=== PATIENT | male | born 1955 | race Caucasian/White ===

== ENCOUNTER 2023-06-15 16:05 | Outpatient (REF) | payer OTHER, SELFPAY ==
[2023-06-15 20:47] LABS: Abs Immature Grans 0.04 10^3/uL (0.0-0.06); Absolute Basophil Count 0.08 10^3/uL (0.0-0.2); Absolute Eosinophil Count 0.18 10^3/uL (0.0-0.7); Absolute Lymphocyte Count 2.12 10^3/uL (1.2-3.4); Absolute Monocyte Count 0.67 10^3/uL (0.1-0.8); Absolute Neutrophil Count 5.94 10^3/uL (1.2-6.7); Basophils % 0.9; HCT 50.9 % (40.0-50.0); HGB 17.5 g/dL (13.5-17.5); Immature Grans % 0.4; Lymphocytes % 23.5; MCH 32.6 pg (27.0-33.0); MCHC 34.4 % (32.0-36.0); MCV 95 fL (80-95); MPV 10.5 fL (8.0-11.0); Monocytes % 7.4; Neutrophils % 65.8; Platelet Count 269 10^3/uL (130-400); RBC 5.36 10^6/uL (4.36-5.78); RDW 12.5 % (11.8-14.1); RDW-SD 43.9 fL; WBC 9.03 10^3/uL (4.4-10.8)
[2023-06-15 21:20] LABS: ALT 71 U/L (16-63); AST 37 U/L (15-37); Alkaline Phosphatase 68 U/L (46-116); Anion Gap 10.4 mmol/L (3-11); BUN 15 mg/dL (7-18); Bilirubin, Total 1.2 mg/dL (0.2-1.0); CO2 24.6 mmol/L (21.0-32.0); CREATININE 0.9 mg/dL (0.70-1.30); Calcium 9.8 mg/dL (8.5-10.1); Calculated LDL 185 mg/dL (<100); Chloride 103 mmol/L (98-107); Cholesterol 269 mg/dL (<200); Estimated GFR 93.03 (mL/min/1.73m2); Glucose 97 mg/dL (74-106); HDL Cholesterol 44 mg/dL (40-60); Potassium 4.5 mmol/L (3.5-5.1); Sodium 138 mmol/L (136-145); TSH (W/Ref FT4) 1.89 uIU/mL (0.36-3.74); Total Protein 7.6 g/dL (6.4-8.2); Triglyceride 203 mg/dL (<150)
[2023-06-15 21:39] LABS: Vitamin D 25 Total 66.4 ng/mL (30-100)
== END 2023-06-15 16:06 | disposition home or self-care (01) ==
LOC: NCHCN 16:05
PROVIDERS: Visit Provider Student in an Organized Health Care Education/Training Program
DX: E78.5 Hyperlipidemia, unspecified (principal); I10 Essential (primary) hypertension; E55.9 Vitamin D deficiency, unspecified
CPT/HCPCS: 80053; 80061; 82306; 84443; 85025

== ENCOUNTER 2023-07-22 08:53 | Outpatient (REF) | payer OTHER, SELFPAY ==
[2023-07-22 16:02] LABS: Abs Immature Grans 0.02 10^3/uL (0.0-0.06); Absolute Basophil Count 0.07 10^3/uL (0.0-0.2); Absolute Eosinophil Count 0.23 10^3/uL (0.0-0.7); Absolute Lymphocyte Count 3.03 10^3/uL (1.2-3.4); Absolute Monocyte Count 0.69 10^3/uL (0.1-0.8); Absolute Neutrophil Count 4.51 10^3/uL (1.2-6.7); Basophils % 0.8; Eosinophils % 2.7; HCT 50.2 % (40.0-50.0); HGB 17.3 g/dL (13.5-17.5); Immature Grans % 0.2; Lymphocytes % 35.4; MCH 32.7 pg (27.0-33.0); MCHC 34.5 % (32.0-36.0); MCV 95 fL (80-95); MPV 10.4 fL (8.0-11.0); Monocytes % 8.1; Neutrophils % 52.8; Platelet Count 259 10^3/uL (130-400); RBC 5.29 10^6/uL (4.36-5.78); RDW 12.9 % (11.8-14.1); RDW-SD 44.4 fL; WBC 8.55 10^3/uL (4.4-10.8)
[2023-07-22 17:04] LABS: ALT 54 U/L (16-63); AST 25 U/L (15-37); Albumin 3.9 g/dL (3.4-5.0); Alkaline Phosphatase 72 U/L (46-116); BUN 11 mg/dL (7-18); CREATININE 0.9 mg/dL (0.70-1.30); Calcium 9.5 mg/dL (8.5-10.1); Calculated LDL 169 mg/dL (<100); Chloride 107 mmol/L (98-107); Cholesterol 247 mg/dL (<200); Estimated GFR 93.03 (mL/min/1.73m2); Glucose 109 mg/dL (74-106); HDL Cholesterol 47 mg/dL (40-60); Potassium 4.4 mmol/L (3.5-5.1); Sodium 146 mmol/L (136-145); Total Protein 7.4 g/dL (6.4-8.2); Triglyceride 155 mg/dL (<150)
== END 2023-07-22 08:54 | disposition home or self-care (01) ==
LOC: NCHCN 08:53
PROVIDERS: Visit Provider Student in an Organized Health Care Education/Training Program
DX: R74.01 Elevation of levels of liver transaminase levels (principal); E78.5 Hyperlipidemia, unspecified
CPT/HCPCS: 80053; 80061; 85025

== ENCOUNTER 2023-09-20 17:08 | Outpatient (REF) | payer OTHER, SELFPAY ==
[2023-09-20 16:46] LABS: ALT 87 U/L (16-63); AST 41 U/L (15-37); Alkaline Phosphatase 85 U/L (46-116); Anion Gap 10.3 mmol/L (3-11); BUN 11 mg/dL (7-18); Bilirubin, Total 1.4 mg/dL (0.2-1.0); CO2 26.7 mmol/L (21.0-32.0); CREATININE 0.8 mg/dL (0.70-1.30); Chloride 104 mmol/L (98-107); Glucose 115 mg/dL (74-106); Potassium 4.9 mmol/L (3.5-5.1); Sodium 141 mmol/L (136-145); Total Protein 7.4 g/dL (6.4-8.2)
[2023-09-20 16:52] LABS: Calcium 9.6 mg/dL (8.5-10.1)
== END 2023-09-20 17:09 | disposition home or self-care (01) ==
LOC: NCHCN 17:08
PROVIDERS: Visit Provider Student in an Organized Health Care Education/Training Program
DX: E78.5 Hyperlipidemia, unspecified (principal)
CPT/HCPCS: 80053

== ENCOUNTER 2023-10-21 07:49 | Day surgery (SDC) | payer MEDICARE, SELFPAY ==
[2023-10-21 08:06] VITALS: BP 153/89; PULSE 82; RESP 16; TEMP 36.5; O2SAT 97
[2023-10-21] MEDS: Lactated Ringers 1,000 ML 80 ML IV (08:32)
--- NOTE | 2023-10-21 09:06 | W.ANESPRE ---
General Info Date of Service Date Performed: 10/21/23 Height: 5 ft 11 in Weight: 81.4 kg Body Mass Index (BMI): 25.0 Surgical Procedure: Operation Date: 10/21/23 09:05 Proposed Procedure Side Surgeon morteza Ann, DO Meds Allergies and Home Medications Allergies Allergy/AdvReac Type Severity Reaction Status Date / Time venom-wasp Allergy Severe Anaphylaxis Verified 10/21/23 08:20 diazepam [From Valium] AdvReac Severe sedation Verified 10/21/23 08:20 Home Medication Medication Instructions Recorded ascorbic acid (vitamin C) 500 mg 500 mg PO DAILY 08/19/23 tablet tomas seed oil-omega 3-6-9 1,000 mg 1 cap PO DAILY 08/19/23 (580 mg) capsule cholecalciferol (vitamin D3) 50 50 mcg PO DAILY 08/19/23 mcg (2,000 unit) capsule epinephrine 0.15 mg/0.15 mL 0.15 mg IM ONCE PRN 08/19/23 auto-injector (for 33 to 66 lb patients) food supplemt, lactose-reduced 360 ml PO DAILY 08/19/23 0.06 gram-1 kcal/mL oral liquid (Boost High Protein) glucosamin 375 mg-chond 300 1 cap PO DAILY 08/19/23 mg-collagen 50 mg-hyaluronic acid 2 mg cap hawthorn extract 150 mg capsule 150 mg PO DAILY PRN 08/19/23 gjrwogtartsw-xtp-jzymq acid-vit 1 tab PO DAILY 08/19/23 K-lycop 400 mcg-20 mcg-370 mcg tablet (Men's 50 Plus Multivitamin) sildenafil 100 mg tablet 100 mg PO DAILY PRN 08/19/23 vitamin B complex 1 tab PO DAILY 08/19/23 vitamin C 45 mg-zinc citrate 3.75 1 tab PO DAILY 08/19/23 mg-elderberry 50 mg chewable tablet ([employer]) bisacodyl 5 mg tablet,delayed 5 mg PO ONCE #4 tabs 10/06/23 release (Dulcolax (bisacodyl)) cannabidiol 100 mg/mL oral solution 150 mg PO BID PRN 10/06/23 lisinopril 10 mg tablet 20 mg PO DAILY 10/06/23 polyethylene glycol 3350 17 17 g PO DAILY #238 grams 10/06/23 gram/dose oral powder Current Visit Medications: Current Medications Generic Name Dose Route Start Last Admin Trade Name Freq PRN Reason Stop Dose Admin Hyoscyamine Sulfate 0.125 mg 10/21/23 06:20 Hyoscyamine 0.125 Mg Sl/Oral/Chew SL 11/20/23 06:19 DIRECTED PRN Ringer's Solution 1,000 mls @ 80 mls/hr 10/21/23 06:00 10/21/23 08:32 IV 11/19/23 23:59 80 mls/hr INFUSION ADAMARIS Administration IV Miscellaneous Supplies 1 each 10/21/23 06:00 Iv Access IV 11/19/23 23:59 DIRECTED ADAMARIS Ondansetron HCl 4 mg 10/21/23 06:20 Ondansetron 4 Mg/2 Ml Vial IVP 11/20/23 06:19 Q4H PRN PRN Nausea / Vomiting Sodium Chloride 0 ml 10/21/23 06:00 Normal Saline Flush 10 Ml Syr IV 11/19/23 23:59 PRN PRN Sodium Chloride 0 ml 10/21/23 06:00 Normal Saline 10 Ml Vial IJ 11/19/23 23:59 DIRECTED PRN Sterile Water 0 ml 10/21/23 06:00 Water,Injection,Sterile 10 Ml Vial IJ 11/19/23 23:59 DIRECTED PRN PFSH Medical History Medical History Headache Adenomatous polyp of colon Hearing disorder Essential hypertension Hyperlipidemia Senile hyperkeratosis Vitamin D deficiency Surgical History Surgical History History of colonoscopy S/P tonsillectomy 1960 History of rhinoplasty external rhinoplasty 1985 H/O vasectomy 1998 History of hernia repair 06/06/18 Tobacco Smoking/Tobacco Use Status: Former Tobacco Use Alcohol Alcohol Intake: current Alcohol intake frequency: 0-2 drinks per day Alcohol type: wine and hard liquor Substance Use Substance use: Occasionally Substance use type: marijuana Vital Signs and Lab Results Vital Signs Most Recent Vital Signs in EMR: Most Recent Vital Signs Temp Pulse Resp BP Pulse Ox 36.5 C 82 16 153/89 H 97 10/21/23 08:06 10/21/23 08:06 10/21/23 08:06 10/21/23 08:06 10/21/23 08:06 Lab Results Blood Type / Crossmatch: No Data to Display Complete Blood Count: No Data to Display Complete Metabolic Panel: No Data to Display Liver Function Panel: No Data to Display Coagulation Panel: No Data to Display Cardiac Panel: No Data to Display Arterial Blood Gas: No Data to Display Venous Blood Gas: No Data to Display Pancreas Panel: No Data to Display Thyroid Panel: No Data to Display Infectious Disease: No Data to Display Blood Cultures: No Data to Display Toxicology Panel: No Data to Display Anesthesia Assessment and Plan Anesthesia History Personal History: No History of Anesthesia Complications Family History: No Family History of Anesthesia Complications Exercise Tolerance Exercise Tolerance: Metabolic Equivalents>4 Pertinent Negatives Pertinent Negatives: No Symptoms of GERD, No Major Cardiovascular Symptoms or Complaints, No Major Pulmonary Symptoms or Complaints and No History of CVA/TIA Cardiac & Pulmonary Exam Cardiac Exam: Normal S1/S2 Heart Sounds Pulmonary Exam: Clear Bilateral Breath Sounds Implantable Cardiac Device Does patient have a Pacemaker or an ICD?: No Airway Exam Known Difficult Airway: No Mallampati Class: 2 Mouth Opening: Normal (> 3cm) Thyromental Distance: Greater than 3 cm Neck Range of Motion: Full ROM Neck Circumference: Normal Teeth Condition: Normal Dentition ASA Classification ASA Score: ASA 2 Emergency Case?: No NPO Status NPO Status: NPO Clears >2 hours, Solids >8 hours Anesthesia Plan Resuscitation Status: Full Code Anesthesia Technique: General Anesthesia Airway Planned: Natural Airway Monitors Used: Standard Monitors Preoperative Comments:: 68 y/o male with history of HLD, HTN and migraine headaches presents for colonoscopy screening pre-op. His last screening was in 2018 and was remarkable for adenomatous polyps x 2.
[2023-10-21 09:08] VITALS: BMI 25.0
--- NOTE | 2023-10-21 09:57 | PDOC.DSDIS_ITS ---
Date of service: 10/21/23 Time of Service: 10:32 Discharge Plan Disposition Patient Disposition: Home Condition: Good Discharge Details Reason For Visit: Colon scope Attending Provider: Jasmyne Ann Primary Care Provider: Prakash Rubio Home Meds and New Rx's Prescriptions: Continued Boost High Protein 0.06 gram- 1 kcal/mL liquid 360 ml PO DAILY cholecalciferol (vitamin D3) 50 mcg (2,000 unit) capsule 50 mcg PO DAILY Elderberry [employer] [facility] 45-3.75-50 mg tablet,chewable 1 tab PO DAILY epinephrine 0.15 mg/0.15 mL auto-injector 0.15 mg IM ONCE PRN kzwqncse-wnsy-nhoyam-hyalur ac [id number] mg capsule 1 cap PO DAILY hawthorn extract 150 mg capsule 150 mg PO DAILY PRN Men's 50 Plus Multivitamin 400-20-370 mcg tablet 1 tab PO DAILY tomas seed oil-omega 3-6-9 1,000 mg (580 mg) capsule 1 cap PO DAILY sildenafil 100 mg tablet 100 mg PO DAILY PRN Rx Instructions: administer 30 minutes to 4 hours before activity vitamin B complex Tablet 1 tab PO DAILY ascorbic acid (vitamin C) 500 mg tablet 500 mg PO DAILY cannabidiol 100 mg/mL solution 150 mg PO BID PRN lisinopril 10 mg tablet 20 mg PO DAILY Discontinued bisacodyl [Dulcolax (bisacodyl)] 5 mg tablet,delayed release (DR/EC) 5 mg PO ONCE Qty: 4 0RF polyethylene glycol 3350 17 gram/dose powder 17 g PO DAILY Qty: 238 0RF Discharge Instructions Additional Instructions: DSU Colonoscopy Post- Op Instructions Instructions for Everyone who is given Anesthesia: For your safety, please do the following for the next twenty-four (24) hours: *Do Not operate a motor vehicle (car, truck, motorcycle, etc.) *Do Not drink alcoholic beverages or use any recreational drugs for the first 24 hours or while taking pain medications. The medications in your body may have a reaction that can be dangerous. *Do Not make any important decisions or sign any important papers. Findings: Adenomatous polyps x 2 Follow up: My office will send you letter in 3 to 4 weeks time with the results of the pathology and when we want to repeat the colonoscopy. Most likely 5 to 7 years time. 1. No lifting over 20 pounds or strenuous activity for the first 24 hours after your procedure. After 24 hours there are no restrictions on your activity but you may feel fatigued for a few days. 2. After you arrive home you may have a light meal and return to your normal diet as you can tolerate it without feeling sick to your stomach. 3. You may have a bloated, gaseous feeling in your belly (abdomen) after a colonoscopy. Passing gas and belching will help. Walking or lying down on your left side with your knees flexed may relieve the discomfort. Call the office at [phone] (Office) or [phone] (Hospital) right away if you notice any of the following: a.Vomiting of blood or ?coffee ground stools?. b.Rectal bleeding 1Tbsp, blood clots or continuous bleeding. c.Severe belly (abdominal) pain. d.A hard distended belly (abdomen) and an inability to pass gas. 4. Please don?t expect to have a normal BM (bowel movement) for 2-3 days after your procedure. 5. If there are questions regarding the findings of your procedure, please contact your doctor 6. If you are unable to contact your doctor with a problem, contact the hospital at [phone]. 7. Continue all your regular medications unless directed otherwise. I understand the above instructions and have no questions. Signature of Patient or Adult Escort Name of Responsible Adult Escort Signature of Nurse Date/Time Stand Alone Forms: Anesthesia Discharge Randall Kumar (DSU) Activity:: See above Diet:: See above Discharge Orders Discharge Orders: Discharge Order (Routine); Ordered 10/21/23 Ordered By: Jasmyne Ann DS: Diagnosis Discharge Diagnosis (1) Adenomatous polyps: Status: Acute Asessment and Plan: The patient is seen and examined after their colonoscopy.? The patient has been able to pass gas.? They are not having abdominal pain.? They have been able to tolerate liquids and a snack.? They do not have any nausea or vomiting.? They are not having any chest pain or shortness of breath.??? They are not having any rectal bleeding. Their vital signs have been stable-see nursing notes. We discussed findings during their colonoscopy, and any biopsies that were done/polyps that were removed. The patient will be sent a letter with any biopsy results, and when to repeat the colonoscopy.-see discharge instructions. Patient was given explicit instructions to follow-up regarding colonoscopy-refer to discharge instructions.? We reviewed resumption of medications. Patient verbalized understanding and discharged in stable and satisfactory condition- See nursing notes.
--- NOTE | 2023-10-21 09:57 | COLE_ITS ---
Date of service: 10/21/23 Time of Service: 10:34 Colonoscopy Report Date of procedure: 10/21/23 Pre-op diagnosis general: History of adenomatous polyps Post-op diagnosis procedure note: other (Adenomatous polyps) Surgeon: Jasmyne Ann Anesthesia Type: General:No Airway Estimated blood loss (mL): 1 Pathology: other Complications: None Disposition: same day Prep: Miralax/Dulcolax Retraction Time: 15 Procedure Description: After informed consent was obtained the patient was taken to the procedure room and placed in a left decubitous position. Monitors were applied and a time out was done. The patients name, date of , procedure, allergies to medications and metal in their body was reviewed. The patient was then sedated. Once sedated and comfortable a rectal exam was done. External exam was normal. Internal exam revealed a normal sphincter tone and no palpable masses. The prostate no masses palpated. The scope was then introduced and retrofelexed. internal hemorrhoids were identified. The scope was then advanced to the cecum without difficulty. The TI and appendiceal orifice were identified. The scope was then slowly retracted over 15 minutes back into the rectum. There are no diverticula or AVMs visualized today. He is to flat 0.5 cm polyps that we removed. There removed with a cold biting forcep. One is from the cecum and one is from the rectum. All specimens are achieved and no bleeding is noted. The mucosa is pink and healthy with a normal vascular pattern the scope was removed and the patient was woken up and taken back to Same day surgery in stable condition. The patient tolerated the procedure well and there were no immediate complications. Follow up: The patient should follow up in 5-7 years unless they develop changes in bowel habits or other new gastrointestinal complaints. Guthrie Bowel Prep Guthrie Bowel Prep Right Colon: 3 Left Colon: 3 Transverse Colon: 3 Total Score: 9
--- NOTE | 2023-10-21 10:09 | BOWEL_PTH ---
PATIENT: Christos Putnam LOC: [facility] U#:[id number] AGE/SX: 68/M ROOM: RE10/21/[address]: Jasmyne Ann : 1955 BED: DIS: 10/21/2023 SPEC #: [id number] RECD: 10/21/23 12:08 STATUS: TRINITY REBeena #: [id number] LOGAN: 10/21/23 10:[address]: Jasmyne Ann DEPT: Surgical Specimen RECD BY: Mary Ledesma ENTERED: 10/21/23 12:09 SP TYPE: Bowel OTHR DR: Prakash Rubio Tissues: 1 - BIOPSY BOWEL 2 - BIOPSY BOWEL Procedures: GROSS AND MICRO LEVEL 4 Comments: [id number]
[2023-10-21 10:28] VITALS: BP 102/81; PULSE 74; RESP 16; TEMP 36.3; O2SAT 95
--- NOTE | 2023-10-21 10:38 | W.PM.DSUDISC ---
Date of service: 10/21/23 Time of Service: 10:38 Discharge Plan Disposition Patient Disposition: Home Condition: Good Discharge Details Reason For Visit: Colon scope Attending Provider: Jasmyne Ann Primary Care Provider: Prakash Rubio Home Meds and New Rx's Prescriptions: Continued Boost High Protein 0.06 gram- 1 kcal/mL liquid 360 ml PO DAILY cholecalciferol (vitamin D3) 50 mcg (2,000 unit) capsule 50 mcg PO DAILY Elderberry [employer] 45-3.75-50 mg tablet,chewable 1 tab PO DAILY epinephrine 0.15 mg/0.15 mL auto-injector 0.15 mg IM ONCE PRN bgwsgnpv-mrbs-bhjdnl-hyalur ac [id number] mg capsule 1 cap PO DAILY hawthorn extract 150 mg capsule 150 mg PO DAILY PRN Men's 50 Plus Multivitamin 400-20-370 mcg tablet 1 tab PO DAILY tomas seed oil-omega 3-6-9 1,000 mg (580 mg) capsule 1 cap PO DAILY sildenafil 100 mg tablet 100 mg PO DAILY PRN Rx Instructions: administer 30 minutes to 4 hours before activity vitamin B complex Tablet 1 tab PO DAILY ascorbic acid (vitamin C) 500 mg tablet 500 mg PO DAILY cannabidiol 100 mg/mL solution 150 mg PO BID PRN lisinopril 10 mg tablet 20 mg PO DAILY Discontinued bisacodyl [Dulcolax (bisacodyl)] 5 mg tablet,delayed release (DR/EC) 5 mg PO ONCE Qty: 4 0RF polyethylene glycol 3350 17 gram/dose powder 17 g PO DAILY Qty: 238 0RF Discharge Instructions Additional Instructions: DSU Colonoscopy Post-Op Instructions Instructions for Everyone who is given Anesthesia: For your safety, please do the following for the next twenty-four (24) hours: *Do Not operate a motor vehicle (car, truck, motorcycle, etc.) *Do Not drink alcoholic beverages or use any recreational drugs for the first 24 hours or while taking pain medications. The medications in your body may have a reaction that can be dangerous. *Do Not make any important decisions or sign any important papers. Findings: Adenomatous polyps x 2 Follow up: My office will send you letter in 3 to 4 weeks time with the results of the pathology and when we want to repeat the colonoscopy. Most likely 5 to 7 years time. 1. No lifting over 20 pounds or strenuous activity for the first 24 hours after your procedure. After 24 hours there are no restrictions on your activity but you may feel fatigued for a few days. 2. After you arrive home you may have a light meal and return to your normal diet as you can tolerate it without feeling sick to your stomach. 3. You may have a bloated, gaseous feeling in your belly (abdomen) after a colonoscopy. Passing gas and belching will help. Walking or lying down on your left side with your knees flexed may relieve the discomfort. Call the office at [phone] (Office) or [phone] (Hospital) right away if you notice any of the following: a.Vomiting of blood or ?coffee ground stools?. b.Rectal bleeding 1Tbsp, blood clots or continuous bleeding. c.Severe belly (abdominal) pain. d.A hard distended belly (abdomen) and an inability to pass gas. 4. Please don?t expect to have a normal BM (bowel movement) for 2-3 days after your procedure. 5. If there are questions regarding the findings of your procedure, please contact your doctor 6. If you are unable to contact your doctor with a problem, contact the hospital at [phone]. 7. Continue all your regular medications unless directed otherwise. I understand the above instructions and have no questions. Signature of Patient or Adult Escort Name of Responsible Adult Escort Signature of Nurse Date/Time Stand Alone Forms: Anesthesia Discharge Randall Kumar (DSU) Activity:: See above Diet:: See above Discharge Orders Discharge Orders: Discharge Order (Routine); Ordered 10/21/23 Ordered By: Jasmyne Ann DS: Diagnosis Discharge Diagnosis (1) Adenomatous polyps: Status: Acute Asessment and Plan: The patient is seen and examined after their colonoscopy.? The patient has been able to pass gas.? They are not having abdominal pain.? They have been able to tolerate liquids and a snack.? They do not have any nausea or vomiting.? They are not having any chest pain or shortness of breath.??? They are not having any rectal bleeding. Their vital signs have been stable-see nursing notes. We discussed findings during their colonoscopy, and any biopsies that were done/polyps that were removed. The patient will be sent a letter with any biopsy results, and when to repeat the colonoscopy.-see discharge instructions. Patient was given explicit instructions to follow-up regarding colonoscopy-refer to discharge instructions.? We reviewed resumption of medications. Patient verbalized understanding and discharged in stable and satisfactory condition- See nursing notes.
--- NOTE | 2023-10-21 10:46 | W.ANESPOSTOP ---
Postoperative Evaluation Date, Time and Location Date Performed: 10/21/23 Time Performed: 10:46 Patient Location: Day Surgery Unit Vital Signs Most Recent Imported Vital Signs: Most Recent Vital Signs Temp Pulse Resp BP Pulse Ox 36.3 C L 74 16 102/81 95 10/21/23 10:28 10/21/23 10:28 10/21/23 10:28 10/21/23 10:28 10/21/23 10:28 Pain Score Most Recent Pain Score: Most Recent Pain Score Pain Level 0 10/21/23 10:28 Assessment Mental Status: Awake (Alert & Oriented to Patient Baseline) Airway and Respiratory Function: Patent airway with normal (patient baseline) respiratory exam Cardiovascular Function: Hemodynamically Stable Hydration Status: Adequately Hydrated Nausea & Vomiting: No Nausea or Vomiting Pain: Pt. Denies Any Pain Peripheral Nerve Block: Patient did not receive a nerve block
[2023-10-21 11:04] VITALS: BP 123/84; PULSE 69; RESP 16; TEMP 36.3; O2SAT 96
== END 2023-10-21 11:24 | disposition home or self-care (01) ==
PROVIDERS: PCP Student in an Organized Health Care Education/Training Program; Visit Provider Surgery
PROC: 0DJD8ZZ Inspection of Lower Intestinal Tract, Via Natural or Artificial Opening Endoscopic (ICD-10-PCS; CPT 45378; principal; 2023-10-21 09:00)
DX: Z12.11 Encounter for screening for malignant neoplasm of colon (principal); D12.0 Benign neoplasm of cecum; I10 Essential (primary) hypertension; D12.8 Benign neoplasm of rectum
CPT/HCPCS: 45380; 88305; J2704

== ENCOUNTER 2023-11-14 10:42 | Outpatient (REF) | payer MEDICARE, SELFPAY ==
[2023-11-14 16:48] LABS: ALT 78 U/L (16-63); AST 37 U/L (15-37); Alkaline Phosphatase 72 U/L (46-116); Anion Gap 8.1 mmol/L (3-11); BUN 9 mg/dL (7-18); Bilirubin, Total 1.3 mg/dL (0.2-1.0); CO2 29.9 mmol/L (21.0-32.0); CREATININE 0.9 mg/dL (0.70-1.30); Calcium 9.8 mg/dL (8.5-10.1); Calculated LDL 171 mg/dL (<100); Chloride 103 mmol/L (98-107); Cholesterol 246 mg/dL (<200); Estimated GFR 93.03 (mL/min/1.73m2); Glucose 99 mg/dL (74-106); HDL Cholesterol 49 mg/dL (40-60); Potassium 4.6 mmol/L (3.5-5.1); Sodium 141 mmol/L (136-145); Total Protein 7.5 g/dL (6.4-8.2); Triglyceride 131 mg/dL (<150)
== END 2023-11-14 10:43 | disposition home or self-care (01) ==
LOC: NCHCN 10:42
PROVIDERS: PCP Student in an Organized Health Care Education/Training Program; Visit Provider Student in an Organized Health Care Education/Training Program
DX: E78.5 Hyperlipidemia, unspecified (principal); R74.01 Elevation of levels of liver transaminase levels
CPT/HCPCS: 80053; 80061

== ENCOUNTER 2024-07-02 14:45 | Outpatient (REF) | payer MEDICARE, SELFPAY ==
[2024-07-02 16:53] LABS: Calculated LDL 160 mg/dL (<100); Cholesterol 238 mg/dL (<200); HDL Cholesterol 51 mg/dL (40-60); Triglyceride 138 mg/dL (<150)
[2024-07-03 18:55] LABS: HIV-1/2 Ag & Ab Screen Negative (Negative)
[2024-07-03 19:24] LABS: Hepatitis C Ab w Rflx HCV PCR Negative (Negative)
[2024-07-04 11:06] LABS: Syphilis Serology (RPR) Negative (Negative)
== END 2024-07-02 14:46 | disposition home or self-care (01) ==
LOC: NCHCN 14:45
PROVIDERS: PCP Student in an Organized Health Care Education/Training Program; Visit Provider Student in an Organized Health Care Education/Training Program
DX: E78.5 Hyperlipidemia, unspecified (principal)
CPT/HCPCS: 80061; 86803; 87389; 86592

== ENCOUNTER 2024-07-03 19:39 | Outpatient (REF) | payer MEDICARE, SELFPAY ==
[2024-07-06 13:27] LABS: Chlamydia Result Negative (Negative); GC Result Negative (Negative)
== END 2024-07-03 19:40 | disposition home or self-care (01) ==
LOC: NCHCN 19:39
PROVIDERS: PCP Student in an Organized Health Care Education/Training Program; Visit Provider Student in an Organized Health Care Education/Training Program
DX: Z11.3 Encounter for screening for infections with a predominantly sexual mode of transmission (principal); Z72.51 High risk heterosexual behavior
CPT/HCPCS: 87491; 87591

== ENCOUNTER 2025-04-11 16:34 | Outpatient (REF) | payer MEDICARE, OTHER, SELFPAY ==
[2025-04-11 16:56] LABS: HCT 52.7 % (40.0-50.0); HGB 17.3 g/dL (13.5-17.5); MCH 32.2 pg (27.0-33.0); MCHC 32.8 % (32.0-36.0); MCV 98 fL (80-95); MPV 10.5 fL (8.0-11.0); Platelet Count 249 10^3/uL (130-400); RBC 5.38 10^6/uL (4.36-5.78); RDW 12.8 % (11.8-14.1); RDW-SD 46.1 fL; WBC 7.78 10^3/uL (4.4-10.8)
[2025-04-11 17:15] LABS: Anion Gap 5.5 mmol/L (3-11); BUN 17 mg/dL (7-18); CO2 32.5 mmol/L (21.0-32.0); Calcium 9.2 mg/dL (8.5-10.1); Chloride 104 mmol/L (98-107); Cholesterol 138 mg/dL (<200); Glucose 90 mg/dL (74-106); HDL Cholesterol 42 mg/dL (>or=40); Potassium 4.5 mmol/L (3.5-5.1); Sodium 142 mmol/L (136-145); TSH (W/Ref FT4) 2.59 uIU/mL (0.36-3.74)
[2025-04-11 17:35] LABS: Microalb ug/mg Crea 6.3 ug/mg Cr
== END 2025-04-11 16:35 | disposition home or self-care (01) ==
LOC: NCHCN 16:34
PROVIDERS: PCP Student in an Organized Health Care Education/Training Program; Visit Provider Student in an Organized Health Care Education/Training Program
DX: E78.5 Hyperlipidemia, unspecified (principal); I10 Essential (primary) hypertension
CPT/HCPCS: 80048; 80061; 85027; 82043; 82570; 84443

== ENCOUNTER → 2025-04-15 02:06 | Outpatient (CLI) | payer MEDICARE, SELFPAY ==
--- NOTE | 2025-04-15 08:30 | DI.US_ITS ---
Exam(s) US AAA SCREENING EXAM: US AAA SCREENING CLINICAL HISTORY: PERS HX NICOTINE DEPENDENCE [id number] [employer]MER [employer] COMPARISON: No exams were available for comparison FINDINGS: There is no evidence of abdominal aortic aneurysm. Maximum diameter of the aorta is 2.7 cm proximally and there is normal distal tapering of the aorta demonstrated. There does not appear to be significant mural thrombus. The visualized common iliac arteries exhibit normal diameters. IMPRESSION: No evidence of abdominal aortic aneurysm. DATA REPOSITORY:
== END ==
PROVIDERS: PCP Student in an Organized Health Care Education/Training Program; Visit Provider Student in an Organized Health Care Education/Training Program
DX: Z87.891 Personal history of nicotine dependence (principal)
CPT/HCPCS: 76706